=== PATIENT | male | born 1955 | race Caucasian/White ===

== ENCOUNTER → 2016-03-28 | Outpatient (CLI) | payer OTHER | END | disposition home or self-care (01) | LOC: SLEEP 15:12 | PROVIDERS: ATTEND Internal Medicine Critical Care Medicine ==

== ENCOUNTER 2017-03-27 13:03 | Inpatient (IN) | payer OTHER ==
--- NOTE | 2017-03-27 14:05 | ED ---
General Adult HPI - General Source: patient, RN notes reviewed Mode of arrival: ambulatory Limitations: no limitations <Guillermo Zhang - Last Filed: 03/27/17 15:01> <Vicente Rodriguez - Last Filed: 03/27/17 15:05> - General Chief complaint: Extremity Problem,Nontraumatic Stated complaint: R/O Blood Clot-sent by [facility] Time Seen by Provider: 03/27/17 13:27 - History of Present Illness Initial comments: Patient 61-year-old male who presents emergency room today with chief complaint of some swelling to his lower extremity on the left greater than right. He does admit that he's had this over the last 2 months. Does have a history of blood clots. He shouldn't currently on Coumadin. He went to the [place] clinic and was advised that his Coumadin level was 1.7. He told them about this swelling of his noticed over last one half months. States was advised complete emergency room to rule out DVT. Patient denies any pain. Denies any injury. Denies any other complaints. Patient denies any recent fever, chills, shortness of breath, chest pain, back pain, abdominal pain, nausea or vomiting, headaches or visual changes, or any other complaints. (Guillermo Zhang) - Related Data Home Medications Medication Instructions Recorded Confirmed Unable To Assess [Unable to Assess] 03/27/17 03/27/17 Allergies Allergy/AdvReac Type Severity Reaction Status Date / Time No Known Allergies Allergy Verified 03/27/17 13:13 Review of Systems ROS Other: All systems not noted in ROS Statement are negative. <Guillermo Zhang - Last Filed: 03/27/17 15:01> ROS Other: All systems not noted in ROS Statement are negative. <Vicente Rodriguez - Last Filed: 03/27/17 15:05> ROS Statement: Those systems with pertinent positive or pertinent negative responses have been documented in the HPI. Past Medical History Past Medical History: Diabetes Mellitus, Deep Vein Thrombosis (DVT), Thyroid Disorder History of Any Multi-Drug Resistant Organisms: None Reported Past Surgical History: Orthopedic Surgery Additional Past Surgical History / Comment(s): rt knee Past Psychological History: No Psychological Hx Reported Smoking Status: Current every day smoker Past Alcohol Use History: None Reported Past Drug Use History: None Reported <Guillermo Zhang - Last Filed: 03/27/17 15:01> General Exam Limitations: no limitations <Guillermo Zhang - Last Filed: 03/27/17 15:01> <Vicente Rodriguez - Last Filed: 03/27/17 15:05> - General Exam Comments Initial Comments: General: The patient is awake and alert, in no distress, and does not appear acutely ill. Neck: The neck is supple, there is no tenderness or JVD. Cardiovascular: There is a regular rate and rhythm. No murmur, rub or gallop is appreciated. Respiratory: Lungs are clear to auscultation, respirations are non-labored, breath sounds are equal. No wheezes, stridor, rales, or rhonchi. Musculoskeletal: Patient does have moderate swelling to the left lower extremity greater than the right. There is no pitting. Shows full range motion. No tenderness. No bony tenderness. Sensations are intact pulses equal 2+. Neurological: A&O x 3. CN II-XII intact, There are no obvious motor or sensory deficits. Coordination appears grossly intact. Speech is normal. Skin: Skin is warm and dry and no rashes or lesions are noted. Psychiatric: Normal mood and affect. (Guillermo Zhang) Course <Guillermo Zhang - Last Filed: 03/27/17 15:01> <Vicente Rodriguez - Last Filed: 03/27/17 15:05> Vital Signs 03/27/17 13:10 Temperature 98.3 F Pulse Rate 93 Respiratory 20 Rate Blood Pressure 138/85 O2 Sat by Pulse 95 Oximetry - Reevaluation(s) Reevaluation #1: 03/27/17 15:04 PA supervision: I did personally do a fjyj-wy-tlqh evaluation the patient did discuss findings with him. He was sent from the [place] clinic with suspicion of recurrent DVT. He doesn't fact have a DVT as per ultrasound of the left lower extremity. His INR was 1.7 and is subtherapeutic. Patient's heart demonstrated regular rate and rhythm on auscultation lung sounds are clear he does maintain a pulse ox. He will be admitted for heparinization and anticoagulation therapy to be optimized. (Vicente Rodriguez) Medical Decision Making <Guillermo Zhang - Last Filed: 03/27/17 15:01> <Vicente Rodriguez - Last Filed: 03/27/17 15:05> - Medical Decision Making Patient's ultrasound of the right leg appears negative for DVT but does show popliteal fossa measuring 4 x 3 cm consistent with a Monique's cyst. Patient's left leg is positive for DVT from the mid femoral vein through the mid popliteal vein. Patient did have his INR checked earlier today at [place] before being sent to emergency room to rule out DVT. He states his INR there was 1.7. His blood work is currently pending at this time. Patient will be admitted to the hospital started on high-dose heparin. Patient denies any chest pain shortness of breath. He is asymptomatic other than leg swelling. (Guillermo Zhang) Disposition Time of Disposition: 14:45 <Guillermo Zhang - Last Filed: 03/27/17 15:01> <Vicente Rodriguez - Last Filed: 03/27/17 15:05> Clinical Impression: Left leg DVT Disposition: ADMITTED IP TO THIS HOSP Referrals: [facility],Clinic [Primary Care Provider] - 1-2 days
--- NOTE | 2017-03-27 14:29 | US ---
EXAMINATION TYPE: US venous doppler duplex LE DATE OF EXAM: 03/27/2017 2:16 PM COMPARISON: US 2016 CLINICAL HISTORY: Pain. Left leg swelling, history of DVT, patient on blood thinners SIDE PERFORMED: Bilateral TECHNIQUE: The lower extremity deep venous system is examined utilizing real time linear array sonog cynthia with graded compression, doppler sonography and color-flow sonography. VESSELS IMAGED: External Iliac Vein (EIV) Common Femoral Vein Deep Femoral Vein Greater Saphenous Vein * Femoral Vein Popliteal Vein Small Saphenous Vein * Proximal Calf Veins (* superficial vessels) Right Leg: Appears negative for DVT, popliteal fossa: 4.7 x 1.5 x 3.7cm complex cystic structure med ial to vessels, possible Monique's cyst Left Leg: Appears positive for DVT mid femoral vein through mid popliteal vein, duel femoral vein wi th thrombus within medial vein and lateral vein appearing patent IMPRESSION: 1. Positive DVT left lower extremity. 2. No evidence of DVT right lower extremity.
[2017-03-27] MEDS ORDERED: SODIUM CHLORIDE 0.9% 1,000 ML IV STA (14:57)
[2017-03-27] MEDS ORDERED: HEPARIN SODIUM,PORCINE 5,000 UNIT/ML 1 ML VIAL IV STA (14:57)
[2017-03-27] MEDS ORDERED: ONDANSETRON 4 MG/2 ML VIAL IVP PRN (14:58)
[2017-03-27 15:15] LABS: Basophils # (A) 0.1 k/uL (0-0.2); Basophils % (A) 1 %; Eosinophils # (A) 0.2 k/uL (0-0.7); Eosinophils % (A) 2 %; HCT 53.4 % (39.0-53.0); HGB 17.4 gm/dL (13.0-17.5); Lymphocytes # (A) 1.3 k/uL (1.0-4.8); Lymphocytes % (A) 14 %; MCH 30.4 pg (25.0-35.0); MCHC 32.6 g/dL (31.0-37.0); MCV 93.2 fL (80.0-100.0); Mean Platelet Volume 6.5; Monocytes # (A) 0.6 k/uL (0-1.0); Monocytes % (A) 6 %; Neutrophils # (A) 6.9 k/uL (1.3-7.7); Neutrophils % (A) 76 %; Platelet Count 206 k/uL (150-450); RBC 5.73 m/uL (4.30-5.90); RDW 12.9 % (11.5-15.5)
[2017-03-27] MEDS: HEPARIN SOD,PORK IN 0.45% NACL 25,000 UNIT in 0.45% NACL 1 500ML.BAG IV SCH (15:19)
[2017-03-27 15:24] LABS: INR 1.5 (<1.2); Partial Thromboplastin Time 28.4 sec (22.0-30.0); Prothrombin Time 14.2 sec (9.0-12.0)
[2017-03-27 15:26] LABS: ALT 30 U/L (21-72); AST 18 U/L (17-59); Albumin 4.5 g/dL (3.5-5.0); Alkaline Phosphatase 39 U/L (38-126); Anion Gap 12 mmol/L; Blood Urea Nitrogen 19 mg/dL (9-20); Calcium 9.9 mg/dL (8.4-10.2); Carbon Dioxide 24 mmol/L (22-30); Chloride 103 mmol/L (98-107); Glucose 131 mg/dL (74-99); Potassium 4.6 mmol/L (3.5-5.1); Sodium 139 mmol/L (137-145); Total Bilirubin 0.5 mg/dL (0.2-1.3); Total Protein 7.1 g/dL (6.3-8.2)
[2017-03-27 16:54] LABS: Glucose,Whole Blood 142 mg/dL (75-99)
[2017-03-27 20:51] LABS: Glucose,Whole Blood 136 mg/dL (75-99)
[2017-03-27] MEDS ORDERED: HYDROcodone/APAP 5-325MG 1 EACH TAB PO PRN (22:37)
--- NOTE | 2017-03-28 | P.HPIM ---
History of Present Illness H&P Date: 03/27/17 Chief Complaint: Left leg swelling Patient is a 61-year-old male with a known history of DVT 2 and PE 1, diabetes type 2 sax-wujyffm-cdwyqvqgd, hypothyroidism and osteoarthritis came to the hospital with complaints of left lower action to swelling. Patient noticed that his left shoe is fitting tight and is getting worse over the last 2 months. Denied any left leg pain otherwise. Patient does take Coumadin. He went to the [place] clinic and was advised that his Coumadin level was 1.7. He told them about this swelling of his noticed over last one half months. States was advised complete emergency room to rule out DVT. Denies any injury. Denies any other complaints. Patient denies any recent fever, chills, shortness of breath, chest pain, back pain, abdominal pain, nausea or vomiting, headaches or visual changes, or any other complaints. Review of Systems Constitutional: Patient denies any fever or chills . No generalized weakness or weight loss. Abdomen: Patient denied nausea vomiting and diarrhea and abdominal pain. Cardiovascular: Patient denies any chest pain or short of breath no palpitations. Respiratory: patient denied any cough is from production. No shortness of breath Neurologic: Patient denied any numbness or tingling headache. Musculoskeletal: Patient denies any complaints of joint swelling or deformity. Left leg swelling Skin: Negative Psychiatric: Negative Endocrine: No heat or cold intolerance. No recent weight gain. Genitourinary: No dysuria or hematuria. All other 14 point ROS negative except the above Past Medical History Past Medical History: Asthma, Diabetes Mellitus, Deep Vein Thrombosis (DVT), Osteoarthritis (OA), Thyroid Disorder History of Any Multi-Drug Resistant Organisms: None Reported Past Surgical History: Orthopedic Surgery Additional Past Surgical History / Comment(s): rt knee arthroscopy, colonoscopy Past Anesthesia/Blood Transfusion Reactions: No Reported Reaction Smoking Status: Current every day smoker - Past Family History Mother Family Medical History: Asthma Father Family Medical History: Pneumonia Additional Family Medical History / Comment(s): from pne Medications and Allergies Home Medications Medication Instructions Recorded Confirmed Type HYDROcodone/APAP 5-325MG [[place] 1 tab PO Q8H PRN 03/27/17 03/27/17 History 5-325] Levothyroxine Sodium [Synthroid] 25 mcg PO AC-SUPPER 03/27/17 03/27/17 History Warfarin [Coumadin] 10 mg PO DAILY 03/27/17 03/27/17 History metFORMIN HCL [Glucophage] 500 mg PO BID 03/27/17 03/27/17 History Allergies Allergy/AdvReac Type Severity Reaction Status Date / Time No Known Allergies Allergy Verified 03/27/17 16:32 Physical Exam Vitals: Vital Signs Temp Pulse Resp BP Pulse Ox 03/27/17 15:23 87 16 127/83 95 03/27/17 13:10 98.3 F 93 20 138/85 95 Intake and Output 03/27/17 03/27/17 03/27/17 06:59 14:59 22:59 Intake Total 180 Balance 180 Intake: Oral 180 Other: # Voids 1 Weight 102.058 kg Patient Weight 03/28/17 06:59 Weight 102.058 kg PHYSICAL EXAMINATION: Patient is lying in the bed comfortably, no acute distress, awake alert and oriented.. HEENT: Normocephalic. Neck is supple. Pupils reactive. Nostrils clear. Oral cavity is moist. Ears reveal no drainage. Neck reveals no JVD, carotid bruits, or thyromegaly. CHEST EXAMINATION: Trachea is central. Symmetrical expansion. Lung morales clear to auscultation and percussion. CARDIAC: Normal S1, S2 with no gallops. No murmurs ABDOMEN: Soft. Bowel sounds normal. No organomegaly. No abdominal bruits. Extremities: reveal no edema. Left lower reduction to swelling especially around calf compared to right leg. No clubbing or cyanosis Neurologically awake, alert, oriented x3 with well-coordinated movements. No focal deficits noted Skin: No rash or skin lesions. Psychiatric: Cooperative. Nonsuicidal Musculoskeletal: No joint swelling or deformity. Normal range of motion. Results CBC & Chem 7: 03/27/17 15:09 03/27/17 15:09 Labs: Abnormal Lab Results - Last 24 Hours (Table) 03/27/17 03/27/17 03/27/17 Range/Units 15:09 15: 15:09 Hct 53.4 H (39.0-53.0) % PT 14.2 H (9.0-12.0) sec INR 1.5 H (<1.2) Glucose 131 H (74-99) mg/dL POC Glucose (mg/dL) (75-99) mg/dL 03/27/17 Range/Units 16:43 Hct (39.0-53.0) % PT (9.0-12.0) sec INR (<1.2) Glucose (74-99) mg/dL POC Glucose (mg/dL) 142 H (75-99) mg/dL Assessment and Plan Assessment: Left leg swelling due to Left extremity DVT History of DVT 2 and 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 subtherapeutic INR Diabetes type 2. Kzo-ctgllvf-brnlrjshv Osteoarthritis Hypothyroidism Plan: Patient will be continued on heparin IV and Coumadin will be started. Continue with insulin sliding scale. Follow-up INR level. Continue with home medications and follow up closely. Pain medications as needed. Further recommendations based on the clinical course. Time with Patient: Greater than 30
[2017-03-28 03:32] LABS: Basophils # (A) 0.1 k/uL (0-0.2); Basophils % (A) 1 %; Eosinophils # (A) 0.2 k/uL (0-0.7); Eosinophils % (A) 3 %; HCT 53.2 % (39.0-53.0); HGB 16.8 gm/dL (13.0-17.5); Lymphocytes # (A) 1.6 k/uL (1.0-4.8); Lymphocytes % (A) 19 %; MCH 30.1 pg (25.0-35.0); MCHC 31.7 g/dL (31.0-37.0); MCV 95.2 fL (80.0-100.0); Mean Platelet Volume 6.4; Monocytes # (A) 0.5 k/uL (0-1.0); Monocytes % (A) 6 %; Neutrophils # (A) 5.7 k/uL (1.3-7.7); Neutrophils % (A) 70 %; Platelet Count 181 k/uL (150-450); RBC 5.59 m/uL (4.30-5.90); RDW 13.1 % (11.5-15.5); WBC 8.1 k/uL (3.8-10.6)
[2017-03-28 03:42] LABS: INR 1.6 (<1.2); Partial Thromboplastin Time 66.3 sec (22.0-30.0); Prothrombin Time 14.8 sec (9.0-12.0)
[2017-03-28 04:13] LABS: ALT 29 U/L (21-72); AST 19 U/L (17-59); Alkaline Phosphatase 35 U/L (38-126); Anion Gap 8 mmol/L; Blood Urea Nitrogen 18 mg/dL (9-20); Calcium 9.6 mg/dL (8.4-10.2); Carbon Dioxide 30 mmol/L (22-30); Chloride 99 mmol/L (98-107); Glucose 126 mg/dL (74-99); Potassium 4.3 mmol/L (3.5-5.1); Sodium 137 mmol/L (137-145); Total Bilirubin 0.5 mg/dL (0.2-1.3); Total Protein 6.6 g/dL (6.3-8.2)
[2017-03-28] MEDS: HEPARIN SOD,PORK IN 0.45% NACL 25,000 UNIT in 0.45% NACL 1 500ML.BAG IV SCH ×2 (06:37→16:57)
[2017-03-28 08:13] LABS: Glucose,Whole Blood 131 mg/dL (75-99)
[2017-03-28] MEDS: INSULIN ASPART 100 UNIT/ML 1 ML 10 ML VIAL SQ SCH ×5 (08:25→22:59)
[2017-03-28 09:40] LABS: INR 1.6 (<1.2); Prothrombin Time 14.9 sec (9.0-12.0)
[2017-03-28] MEDS: WARFARIN 10 MG TAB PO SCH (09:55)
[2017-03-28 11:31] LABS: Glucose,Whole Blood 159 mg/dL (75-99)
[2017-03-28 16:45] LABS: Glucose,Whole Blood 130 mg/dL (75-99)
[2017-03-28] MEDS ORDERED: LEVOTHYROXINE 25 MCG TAB PO SCH (17:30)
[2017-03-28 17:36] LABS: INR 1.5 (<1.2)
[2017-03-28 20:47] LABS: Glucose,Whole Blood 154 mg/dL (75-99)
[2017-03-29] MEDS: HEPARIN SOD,PORK IN 0.45% NACL 25,000 UNIT in 0.45% NACL 1 500ML.BAG IV SCH (01:33)
[2017-03-29 07:07] VITALS: BP 117/77; PULSE 76; RESP 14; TEMP 96.4
[2017-03-29 07:27] LABS: Glucose,Whole Blood 136 mg/dL (75-99)
[2017-03-29] MEDS: WARFARIN 10 MG TAB PO SCH (08:22)
[2017-03-29] MEDS: INSULIN ASPART 100 UNIT/ML 1 ML 10 ML VIAL SQ SCH ×2 (08:22→12:25)
[2017-03-29 09:00] LABS: Basophils # (A) 0.1 k/uL (0-0.2); Basophils % (A) 1 %; Eosinophils # (A) 0.1 k/uL (0-0.7); Eosinophils % (A) 2 %; HCT 53.3 % (39.0-53.0); HGB 17.5 gm/dL (13.0-17.5); Lymphocytes % (A) 14 %; MCH 30.1 pg (25.0-35.0); MCHC 32.8 g/dL (31.0-37.0); MCV 91.7 fL (80.0-100.0); Mean Platelet Volume 6.7; Monocytes # (A) 0.5 k/uL (0-1.0); Monocytes % (A) 7 %; Neutrophils # (A) 5.1 k/uL (1.3-7.7); Neutrophils % (A) 74 %; Platelet Count 187 k/uL (150-450); RBC 5.81 m/uL (4.30-5.90); WBC 6.8 k/uL (3.8-10.6)
[2017-03-29 09:08] LABS: INR 1.9 (<1.2); Prothrombin Time 17.2 sec (9.0-12.0)
[2017-03-29 09:29] LABS: Anion Gap 11 mmol/L; Blood Urea Nitrogen 14 mg/dL (9-20); Calcium 9.4 mg/dL (8.4-10.2); Carbon Dioxide 24 mmol/L (22-30); Chloride 102 mmol/L (98-107); Glucose 261 mg/dL (74-99); Potassium 4.3 mmol/L (3.5-5.1); Sodium 137 mmol/L (137-145)
[2017-03-29] MEDS ORDERED: HEPARIN SODIUM,PORCINE 5,000 UNIT/ML 1 ML VIAL IV STA (09:37)
[2017-03-29 12:32] LABS: Glucose,Whole Blood 136 mg/dL (75-99)
--- NOTE | 2017-03-29 18:09 | P.PN ---
Subjective Progress Note Date: 03/28/17 Progress note being dictated for Dr. Son Interval history:Patient is a 61-year-old male with a known history of DVT 2 and PE 1, diabetes type 2 zgq-clbcsbn-gzbaouvvc, hypothyroidism and osteoarthritis came to the hospital with complaints of left lower action to swelling. Patient noticed that his left shoe is fitting tight and is getting worse over the last 2 months. Denied any left leg pain otherwise. Patient does take Coumadin. He went to the [place] clinic and was advised that his Coumadin level was 1.7. He told them about this swelling of his noticed over last one half months. States was advised complete emergency room to rule out DVT. Denies any injury. Denies any other complaints. Patient denies any recent fever , chills, shortness of breath, chest pain, back pain, abdominal pain, nausea or vomiting, headaches or visual changes, or any other complaints. 03/28/2017 maintained on heparin drip and Coumadin. INR 1.5. Denies chest pain, palpitations or increasing shortness of breath. Tolerating diet intake with no nausea or vomiting. Denies lightheadedness dizziness or focal deficits. Objective - Vital Signs Vital signs: Vital Signs Temp 97.7 F 03/28/17 15:00 Pulse 87 03/28/17 15:00 Resp 16 03/28/17 15:00 BP 128/83 03/28/17 15:00 Pulse Ox 91 L 03/28/17 15:00 Intake & Output 03/28/17 03/28/17 03/29/17 06:59 18:59 06:59 Intake Total 500.000 107.745 Output Total 1500 1200 Balance -1000.000 -1092.255 Intake: Intake, IV Titration 500.000 107.745 Amount Heparin Sod,Pork in 0.45% 500.000 107.745 NaCl 25,000 unit In 0.45 % NaCl 1 500ml.bag @ 18 UNITS/KG/HR 36.74 mls/hr IV .[id number] ERIN Rx#: [id number] Output: Urine 1500 1200 Other: Voiding Method Toilet Urinal # Voids 0 2 - Exam Patient is sitting up in the bed comfortably, no acute distress, awake alert and oriented.. HEENT: Normocephalic. Neck is supple. Pupils reactive. Nostrils clear. Oral cavity is moist. Neck reveals no JVD, carotid bruits, or thyromegaly. CHEST EXAMINATION: Trachea is central. Symmetrical expansion. Lung morales clear to auscultation and percussion. CARDIAC: Normal S1, S2 with no gallops. No murmurs ABDOMEN: Soft. Bowel sounds normal. No organomegaly. No abdominal bruits. Extremities: reveal no edema. Left lower reduction to swelling especially around calf compared to right leg. No clubbing or cyanosis Neurologically awake, alert, oriented x3 with well-coordinated movements. No focal deficits noted Skin: No rash or skin lesions. Psychiatric: Cooperative. Nonsuicidal Musculoskeletal: No joint swelling or deformity. Normal range of motion. - Labs CBC & Chem 7: 03/29/17 08:30 03/29/17 08:30 Labs: Abnormal Lab Results - Last 24 Hours (Table) 03/27/17 03/27/17 03/28/17 Range/Units 20:50 21:20 03:23 Hct 53.2 H (39.0-53.0) % PT (9.0-12.0) sec INR (<1.2) APTT 80.6 H (22.0-30.0) sec Creatinine (0.66-1.25) mg/dL Glucose (74-99) mg/dL POC Glucose (mg/dL) 136 H (75-99) mg/dL Alkaline Phosphatase (38-126) U/L 03/28/17 03/28/17 03/28/17 Range/Units 03:23 03:23 07:43 Hct (39.0-53.0) % PT 14.8 H (9.0-12.0) sec INR 1.6 H (<1.2) APTT 66.3 H (22.0-30.0) sec Creatinine 1.40 H (0.66-1.25) mg/dL Glucose 126 H (74-99) mg/dL POC Glucose (mg/dL) 131 H (75-99) mg/dL Alkaline Phosphatase 35 L (38-126) U/L 03/28/17 03/28/17 03/28/17 Range/Units 08:42 08:42 11:30 Hct (39.0-53.0) % PT 14.9 H (9.0-12.0) sec INR 1.6 H (<1.2) APTT 52.1 H (22.0-30.0) sec Creatinine (0.66-1.25) mg/dL Glucose (74-99) mg/dL POC Glucose (mg/dL) 159 H (75-99) mg/dL Alkaline Phosphatase (38-126) U/L 03/28/17 03/28/17 Range/Units 16:38 17:07 Hct (39.0-53.0) % PT 14.0 H (9.0-12.0) sec INR 1.5 H (<1.2) APTT (22.0-30.0) sec Creatinine (0.66-1.25) mg/dL Glucose (74-99) mg/dL POC Glucose (mg/dL) 130 H (75-99) mg/dL Alkaline Phosphatase (38-126) U/L Assessment and Plan Assessment: Left leg swelling due to Left extremity DVT History of DVT 2 and 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 subtherapeutic INR Diabetes type 2. Ebt-orzenfn-yadojbvwg Osteoarthritis Hypothyroidism Plan: Continue on current medication regime ,monitoring and symptomatic treatment. Maintain heparin drip and Coumadin. Discharge planning in progress for tomorrow pending INR becomes therapeutic. Further recommendations to follow. The impression and plan of care has been dictated as directed. : I performed a history and examination of this patient, discussed the same with the dictator. I agree with the dictator's note ,documented as a scribe. Any additional findings or plans will be noted.
--- NOTE | 2017-03-29 18:16 | P.DS ---
Providers Date of admission: 03/27/17 15:03 Expected date of discharge: 03/29/17 Attending physician: Victoriano Son Primary care physician: [facility] Hospital Course: Final Diagnoses: Left leg swelling due to Left extremity DVT History of DVT 2 and 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 subtherapeutic INR Diabetes type 2. Ndm-grcozzk-wgnsrviud Osteoarthritis Hypothyroidism Hospital course:Patient is a 61-year-old male with a known history of DVT 2 and PE 1, diabetes type 2 pzw-zzunqvp-ywmgcsryj, hypothyroidism and osteoarthritis came to the hospital with complaints of left lower action to swelling. Patient noticed that his left shoe is fitting tight and is getting worse over the last 2 months. Denied any left leg pain otherwise. Patient does take Coumadin. He went to the [facility] and was advised that his Coumadin level was 1.7. He told them about this swelling of his noticed over last one half months. States was advised complete emergency room to rule out DVT. Venous Doppler reported right leg negative for DVT, popliteal fossa 4.7 x 1.5 x 3.7 complex cystic structure medial to vessels possible Monique's cyst, left leg DVT. Maintained on both heparin drip and Coumadin until INR became therapeutic. Significant clinical improvement. Patient is being discharged home in a stable condition with guarded prognosis. Physical Exam:GENERAL: VSS, A & O X3, no acute distress.Lung morales: clear to auscultation and percussion. CARDIAC: Normal S1, S2 with no gallops. No murmurs ABDOMEN: Soft. Bowel sounds normal. No organomegaly. No abdominal bruits. Extremities: reveal no edema. Left lower reduction to swelling especially around calf compared to right leg. No clubbing or cyanosis.Neurologically awake , alert, oriented x3 with well-coordinated movements. No focal deficits noted.Musculoskeletal: No joint swelling or deformity. Normal range of motion. The impression and plan of care has been dictated as directed. : I performed a history and examination of this patient, discussed the same with the dictator. I agree with the dictator's note ,documented as a scribe. Any additional findings or plans will be noted. Time taken: 35 minutes Patient Condition at Discharge: Stable Plan - Discharge Summary Discharge Rx Participant: Yes New Discharge Prescriptions: Continue metFORMIN HCL [Glucophage] 500 mg PO BID Warfarin [Coumadin] 10 mg PO DAILY Levothyroxine Sodium [Synthroid] 25 mcg PO AC-SUPPER HYDROcodone/APAP 5-325MG [[place] 5-325] 1 tab PO Q8H PRN PRN Reason: Pain Albuterol Sulfate [Proair Hfa] 2 puff INHALATION RT-Q6H PRN PRN Reason: Shortness Of Breath Budesonide/Formoterol Fumarate [Symbicort 80-4.5 Mcg Inhaler] 2 puff INHALATION RT-BID Discharge Medication List HYDROcodone/APAP 5-325MG [[place] 5-325] 1 tab PO Q8H PRN 03/27/17 [History] Levothyroxine Sodium [Synthroid] 25 mcg PO AC-SUPPER 03/27/17 [History] Warfarin [Coumadin] 10 mg PO DAILY 03/27/17 [History] metFORMIN HCL [Glucophage] 500 mg PO BID 03/27/17 [History] Albuterol Sulfate [Proair Hfa] 2 puff INHALATION RT-Q6H PRN 03/28/17 [History] Budesonide/Formoterol Fumarate [Symbicort 80-4.5 Mcg Inhaler] 2 puff INHALATION RT-BID 03/28/17 [History] Follow up Appointment(s)/Referral(s): Abigail Whyte PAC [REFERRING] - 04/03/17 3:30 pm Ambulatory/Diagnostic Orders: Prothrombin Time INR [LAB.AMB] Time Frame: 04/02/17, Location: Determined By Patient Patient Instructions/Handouts: Deep Venous Thrombosis (DC) Activity/Diet/Wound Care/Special Instructions: Diet: consist. carb, "coumadin Diet: accu-checks before each meal and at night, maintain log, take to F/U visit with PCP for further rec.
== END 2017-03-29 15:08 | disposition home or self-care (01) | DRG 301 ==
LOC: EC 13:03 → 4MS4W 15:03 → 6SEL 15:36 → 4MS4W 21:58
PROVIDERS: ADMIT Hospitalist; ATTEND Hospitalist
DX: I82.402 Acute embolism and thrombosis of unspecified deep veins of left lower extremity (principal); E03.9 Hypothyroidism, unspecified; E11.9 Type 2 diabetes mellitus without complications; F17.200 Nicotine dependence, unspecified, uncomplicated; J45.909 Unspecified asthma, uncomplicated; M19.90 Unspecified osteoarthritis, unspecified site; R79.1 Abnormal coagulation profile; M71.21 Synovial cyst of popliteal space [Baker], right knee; Z79.01 Long term (current) use of anticoagulants; Z79.84 Long term (current) use of oral hypoglycemic drugs; Z86.718 Personal history of other venous thrombosis and embolism; Z86.711 Personal history of pulmonary embolism
CPT/HCPCS: 36415; 80048; 80053; 85025; 85610; 85730; 93970; 96365; 96376; 99284

== ENCOUNTER → 2021-09-14 | Outpatient (CLI) | payer OTHER ==
--- NOTE | 2021-09-15 09:33 | US ---
EXAMINATION TYPE: US arterial LE single level DATE OF EXAM: 09/14/2021 2:38 PM CLINICAL HISTORY: E08.622 Diabetes Mellitus due to underlying condit. 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 ASHOK approved per MP. Doppler Waveforms: Right: Biphasic to multiphasic Left: Biphasic to multiphasic Pulse Volume Recording: Normal Ankle-Brachial Indices: Right: 1.08 Left: 1.16 Toe Brachial Indices: Right: 0.78 Left: 0.54 IMPRESSION: Slightly diminished left TBI consistent with mild peripheral arterial disease in the lef t foot.
== END | disposition home or self-care (01) ==
LOC: RADUSWWP 13:25
PROVIDERS: ATTEND Thoracic Surgery (Cardiothoracic Vascular Surgery)
DX: E08.622 Diabetes mellitus due to underlying condition with other skin ulcer (principal); L97.922 Non-pressure chronic ulcer of unspecified part of left lower leg with fat layer exposed; I83.892 Varicose veins of left lower extremity with other complications; F17.210 Nicotine dependence, cigarettes, uncomplicated
CPT/HCPCS: 93922

== ENCOUNTER → 2021-12-09 | Outpatient (CLI) | payer OTHER ==
--- NOTE | 2021-12-09 15:20 | US ---
EXAMINATION TYPE: US venous doppler duplex UE RT DATE OF EXAM: 12/09/2021 COMPARISON: NONE CLINICAL HISTORY: RUE, M79.609 PAIN IN UNSPECIFIED LIMB. pain from shoulder to elbow after "waking up wrong" a few months ago, no swelling, h/o dvt within legs and PE's years ago, still on thinners SIDE PERFORMED: Right Right Arm: Negative for DVT Grayscale, color doppler, spectral doppler imaging performed of the deep veins of the upper extremiti es. There is normal flow, compressibility and vascular waveforms. IMPRESSION: No evidence for right upper extremity deep vein thrombosis.
== END | disposition home or self-care (01) ==
LOC: RADUSWWP 13:38
PROVIDERS: ATTEND Family Medicine
DX: M79.609 Pain in unspecified limb (principal)

== ENCOUNTER → 2023-07-12 | Outpatient (CLI) | payer OTHER ==
--- NOTE | 2023-07-15 21:03 | MR ---
EXAMINATION TYPE: MR brain and iac wo/w con DATE OF EXAM: 07/12/2023 COMPARISON: NONE HISTORY: 67-year-old male H91.93, Right ear hearing loss TECHNIQUE: Multiplanar, multisequence images of the brain and brainstem were acquired before and aft er administration of 11 mL IV Gadavist. Diffusion weighted imaging was performed. Additional coned- down sequences through the internal auditory canals and posterior cranial fossa before and after IV c ontrast administration. FINDINGS: Diffusion weighted images demonstrate no evidence of an acute ischemic lesion in the brain. T2/FLAIR images show moderate patchy and confluent bright white matter change throughout the bilatera l cerebral hemispheres. Midline structures demonstrate normal morphology. The craniocervical junction is normal. Mild to moderate generalized volume loss. Mild ventriculomegaly likely due to central cerebral atroph y. There is no evidence of an acute intracranial hemorrhage, infarct, mass, mass-effect or an extra-axia l fluid collection. There is no cerebellopontine angle mass. Dominant left vertebral artery. Major intracranial flow void s are intact. The internal auditory canals are symmetric. Brainstem and skull base abnormalities are not seen. Post contrast images demonstrate no evidence of pathologic enhancement in the posterior cranial kevin a or the internal auditory canals. There is no abnormal enhancement of the labyrinths. Mild mucosal thickening ethmoid air cells. A couple small mucosal retention cysts along the floors of the maxillary sinuses measuring up to 1.1 cm. Globes are intact. There is a nonenhancing cystic lesion of the right parotid gland involving both superficial and deep lobes measuring 3.2 cm wide by 1.7 cm AP by 1.3 cm craniocaudal. IMPRESSION: 1. Mild to moderate cerebral atrophy. Moderate burden of chronic small vessel ischemic disease. 2. No acute intracranial abnormality seen. 3. No specific abnormality on acoustic MRI. 4. Mild chronic ethmoid and maxillary sinus disease. 5. 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 Consider ENT follow-up for further workup/evaluation. Some differential considerations inclu de Warthin tumor, sialocele, first branchial cleft cyst, and parotid cystic lymphangioma.
== END | disposition home or self-care (01) ==
LOC: RADMRIMAIN 12:57
PROVIDERS: ATTEND Otolaryngology
DX: I67.82 Cerebral ischemia (principal); J32.0 Chronic maxillary sinusitis; H91.93 Unspecified hearing loss, bilateral
CPT/HCPCS: 70553; A9585

== ENCOUNTER → 2023-07-12 | Outpatient (CLI) | payer OTHER ==
--- NOTE | 2023-07-14 15:07 | CTL ---
EXAMINATION TYPE: CT Low Dose Lung DATE OF EXAM ORDERED: 07/12/2023 HISTORY: Tobacco use. Lung cancer screening CT DLP: 132.5 mGycm Automated exposure control for dose reduction was used. SCREENING VISIT: Initial COMPARISON: None TECHNIQUE: Low dose computed tomography scan was performed through the chest at 1 mm thick sections a nd reconstructed images in the coronal plane at [address] DIAGNOSTIC QUALITY: Satisfactory FINDINGS: LUNG NODULES: Present, detailed below: 1 there is a 0.3 cm peripheral lateral right upper lobe nodule. Series 4 image 55. LUNGS: COPD: Severity: None Fibrosis: Severity: None Lymph nodes: None Other findings: None RIGHT PLEURAL SPACE: Effusion: None Calcification: None Thickening: None Pneumothorax: None LEFT PLEURAL SPACE: Effusion: None Calcification: None Thickening: None Pneumothorax: None HEART: Heart Size: Normal Coronary calcification: Moderate Pericardial effusion: None OTHER FINDINGS: Upper abdomen: Normal Bony thorax: Normal Supraclavicular region: Normal Other: Ascending thoracic aorta is main pulmonary artery is 4.3 cm. Main pulmonary artery bifurcation is 3.3 cm. IMPRESSION: Benign appearance FOLLOW UP CT CHEST RECOMMENDATION: Follow-up low-dose CT chest one year CT LUNG RAD: Lung-Rad 2 Benign Appearance or Behavior
== END | disposition home or self-care (01) ==
LOC: RADCTMAIN 12:52
PROVIDERS: ATTEND Internal Medicine Pulmonary Disease
DX: Z12.2 Encounter for screening for malignant neoplasm of respiratory organs (principal); F17.210 Nicotine dependence, cigarettes, uncomplicated
CPT/HCPCS: 71271

== ENCOUNTER → 2023-10-29 | Day surgery (SDC) | payer OTHER ==
[2023-10-29 10:01] VITALS: BP 124/68; PULSE 65; RESP 18; TEMP 98.2
[2023-10-29 10:03] LABS: Mean Platelet Volume 7.5; Platelet Count 183 k/uL (150-450)
[2023-10-29 10:09] LABS: INR 1.1 (<1.2)
[2023-10-29 10:10] LABS: Prothrombin Time 11.9 sec (10.0-12.5)
--- NOTE | 2023-10-29 11:41 | US ---
EXAMINATION TYPE: US biopsy parotid gland DATE OF EXAM: 10/29/2023 11:20 AM CLINICAL INDICATION:Male, 67 years old with history of R22.1 mass R parotid gland; , COMPARISON: MR 07/12/2023 ATTENDING: Dr. Vicente Diaz PROCEDURE: Informed consent was obtained. The risks and benefits of the procedure were discussed with the patien t. The site was marked. Timeout procedure was performed Ultrasound imaging demonstrates right parotid lesion The patient was prepped, draped in the usual sterile fashion, and locally anesthetized with 1% lidoca ine. 2 x 20-gauge core needle biopsies were obtained.. Samples were sent to the pathology department for further analysis. Patient tolerated the procedure without incident and was sent home in stable condition. IMPRESSION: Successful ultrasound guided fine needle aspiration [facility], , 10/29/2023 11:39 AM
== END ==
LOC: RADPROMAIN 08:49
PROVIDERS: ATTEND Otolaryngology
DX: R22.1 Localized swelling, mass and lump, neck (principal)
CPT/HCPCS: 36415; 42400; 76942; 85049; 85610; 88305